=== PATIENT | female | born 1985 | race Caucasian/White ===

== ENCOUNTER 2021-06-16 07:25 | Emergency (ER) | payer MEDICAID ==
[~2021-06-16] VITALS: Ht 157.5 cm; Wt 59.9 kg
[~2021-06-16 07:25] MED LIST: IBUP-974 PO
[2021-06-16 07:34] VITALS: BP 111/75
[2021-06-16] MEDS ORDERED: FAMOTIDINE 20 MG TAB PO ONE (08:45)
[2021-06-16] MEDS ORDERED: predniSONE 20 MG TAB PO ONE (08:45)
[2021-06-16] MEDS ORDERED: FAMO-92 PO (09:12)
[2021-06-16] MEDS ORDERED: EPIN1KIT31 IM (09:12)
[2021-06-16] MEDS ORDERED: DIPH25TA53 PO (09:12)
[2021-06-16] MEDS ORDERED: PRED20TA5 PO (09:12)
[2021-06-16 09:33] VITALS: BP 111/75
== END 2021-06-16 09:33 | disposition home or self-care (01) ==
LOC: MED 07:25
DX: L50.0 Allergic urticaria (principal); Z79.899 Other long term (current) drug therapy
CPT/HCPCS: 99283; J7512

== ENCOUNTER 2022-05-30 20:16 | Emergency (ER) | payer MEDICAID ==
[~2022-05-30] VITALS: Ht 154.9 cm; Wt 61.7 kg
[~2022-05-30 20:16] MED LIST changes: +DIPH25TA53 PO; +EPIN1KIT31 IM; +FAMO-92 PO; +PRED20TA5 PO
[2022-05-30 20:27] VITALS: BP 142/90
--- NOTE | 2022-05-30 20:39 | NUR ---
37 Y/O FEMALE BIBAS FROM HOME, C/O ABD PAIN X5 DAYS. PT STATES SHE DIFFUSE LOWER ABD PAIN 5/10. DENIES N/V/D, PAINFUL, OR BLOODY URINATION. PT STATES INCREASED FREQUENCY. DENIES SOB, CP, FEVER, OR COUGH. A/OX4, UNLABORED BREATHING, AMBULATORY. DENIES PMH/RX NKA
[2022-05-30] MEDS ORDERED: IBUPROFEN 400 MG TAB PO ONE (21:15)
[2022-05-30] MEDS ORDERED: ACETAMINOPHEN 325 MG TAB PO ONE (21:15)
[2022-05-30] MEDS ORDERED: PHEN-1877 PO (21:44)
[2022-05-30] MEDS ORDERED: NITR100C7 PO (21:44)
[2022-05-30 22:30] VITALS: BP 142/90
--- NOTE | 2022-05-30 22:30 | NUR ---
Patient discharged with out written and verbal after care instructions .
== END 2022-05-30 22:30 | disposition home or self-care (01) ==
LOC: MED 20:16
DX: R30.0 Dysuria (principal); R10.30 Lower abdominal pain, unspecified; Z79.899 Other long term (current) drug therapy; Z79.1 Long term (current) use of non-steroidal anti-inflammatories (NSAID); Z79.2 Long term (current) use of antibiotics
CPT/HCPCS: 81002; 81025; 99283